=== PATIENT | male | born 1950 | race Caucasian/White ===

== ENCOUNTER 2021-11-06 04:49 | Day surgery (SDC) | payer OTHER, BC ==
[2021-11-01 10:12] VITALS: BMI 34.1
[2021-11-06 11:07] VITALS: TEMP 98
[2021-11-06 11:45] VITALS: BP 152/63; PULSE 68
== END 2021-11-06 12:00 | disposition home or self-care (01) ==
LOC: JASU-ENDO 04:49
PROVIDERS: ATTEND Internal Medicine Gastroenterology
PROC: 0DBH8ZZ Excision of Cecum, Via Natural or Artificial Opening Endoscopic (ICD-10-PCS; principal; 2021-11-06 10:00)
DX: Z12.11 Encounter for screening for malignant neoplasm of colon (principal); Z86.010 Personal history of colon polyps; D12.0 Benign neoplasm of cecum; K57.30 Diverticulosis of large intestine without perforation or abscess without bleeding; K64.8 Other hemorrhoids; I10 Essential (primary) hypertension
CPT/HCPCS: 88305-TC

== ENCOUNTER 2023-09-25 09:05 | Day surgery (SDC) | payer OTHER, MEDICARE ==
[2023-09-20 12:24] VITALS: BMI 33.5
[2023-09-25] MEDS ORDERED: TETRACAINE 0.5% OPHTH SOLN 2 ML BOTTLE ONE (09:09)
[2023-09-25] MEDS ORDERED: NEO/POLYMYX B SULF/DEXAMETH OPHTHALMIC 5ML BOTTLE ONE (09:09)
[2023-09-25] MEDS ORDERED: LIDOCAINE 1% P/F 10 MG/ML VIAL ONE (09:09)
[2023-09-25] MEDS ORDERED: BSS (NA/CA/MG/K) BALANCED SALT SOLUTION OPHTH SOLN 15 ML BOTTLE ONE (09:09)
[2023-09-25] MEDS ORDERED: CARBACHOL 0.01% INTRA-OCULAR 1.5 ML VIAL ONE (09:09)
[2023-09-25] MEDS: PHENYLEPHRINE 2.5% OPTHALMIC DROP 2ML BOTTLE ONE (10:20)
[2023-09-25] MEDS: TROPICAMIDE 1% OPHTH SOLN 15 ML BOTTLE ONE (10:20)
[2023-09-25] MEDS: CIPROFLOXACIN 0.3% EYE DROPS 5 ML BOTTLE ONE (10:20)
[2023-09-25] MEDS: CYCLOPENTOLATE 2% OPHTH SOLN 2 ML BOTTLE ONE (10:20)
[2023-09-25 10:30] VITALS: RESP 18
[2023-09-25] MEDS ORDERED: MIDAZOLAM HCL 2 MG/2 ML SINGLE DOSE VIAL ONE (11:13)
[2023-09-25 12:52] VITALS: TEMP 97.5
[2023-09-25 12:53] VITALS: BP 133/73; PULSE 89
== END 2023-09-25 12:40 | disposition home or self-care (01) ==
LOC: FASU 09:05
PROVIDERS: ATTEND Ophthalmology
PROC: 08RJ3JZ Replacement of Right Lens with Synthetic Substitute, Percutaneous Approach (ICD-10-PCS; principal; 2023-09-25 11:48)
DX: H26.8 Other specified cataract (principal)
CPT/HCPCS: 66984; V2632; 82962

== ENCOUNTER 2023-11-13 10:21 | Day surgery (SDC) | payer OTHER, MEDICARE ==
[2023-11-07 12:37] VITALS: BMI 33.5
[2023-11-13] MEDS: CIPROFLOXACIN 0.3% EYE DROPS 5 ML BOTTLE ONE (11:15)
[2023-11-13] MEDS: PHENYLEPHRINE 2.5% OPTHALMIC DROP 2ML BOTTLE ONE (11:15)
[2023-11-13] MEDS: CYCLOPENTOLATE 2% OPHTH SOLN 2 ML BOTTLE ONE (11:15)
[2023-11-13] MEDS: TROPICAMIDE 1% OPHTH SOLN 15 ML BOTTLE ONE (11:15)
[2023-11-13 11:17] VITALS: RESP 16; TEMP 96.9
[2023-11-13] MEDS ORDERED: NEO/POLYMYX B SULF/DEXAMETH OPHTHALMIC 5ML BOTTLE ONE (11:23)
[2023-11-13] MEDS ORDERED: CARBACHOL 0.01% INTRA-OCULAR 1.5 ML VIAL ONE (11:23)
[2023-11-13] MEDS ORDERED: LIDOCAINE 1% P/F 10 MG/ML VIAL ONE (11:23)
[2023-11-13] MEDS ORDERED: BSS (NA/CA/MG/K) BALANCED SALT SOLUTION OPHTH SOLN 15 ML BOTTLE ONE (11:23)
[2023-11-13] MEDS ORDERED: EPINEPHrine/PF 1 MG/1 ML (1:1,000) AMPULE ONE (11:23)
[2023-11-13] MEDS ORDERED: TETRACAINE 0.5% OPHTH SOLN 2 ML BOTTLE ONE (11:23)
[2023-11-13] MEDS ORDERED: MIDAZOLAM HCL 2 MG/2 ML SINGLE DOSE VIAL ONE (13:21)
[2023-11-13 14:21] VITALS: BP 141/64; PULSE 66
== END 2023-11-13 14:20 | disposition home or self-care (01) ==
LOC: FASU 10:21
PROVIDERS: ATTEND Ophthalmology
PROC: 08RK3JZ Replacement of Left Lens with Synthetic Substitute, Percutaneous Approach (ICD-10-PCS; principal; 2023-11-13 13:26)
DX: H26.8 Other specified cataract (principal)
CPT/HCPCS: 66984; V2632; 82962